=== PATIENT | female | born 1985 | race African-American/Black ===

== ENCOUNTER 2017-01-20 13:35 | Emergency (ER) | payer OTHER ==
[~2017-01-20] VITALS: Ht 157.5 cm; Wt 51.2 kg
== END 2017-01-20 16:15 | disposition home or self-care (01) ==
LOC: CFTX 13:35 → CED 13:35 → CFTX 16:04
DX: T20.16XA Burn of first degree of forehead and cheek, initial encounter (principal); X08.8XXA Exposure to other specified smoke, fire and flames, initial encounter; Y92.9 Unspecified place or not applicable
CPT/HCPCS: 99283